=== PATIENT | female | born 2000 | race Caucasian/White ===

== ENCOUNTER 2019-04-07 04:27 | Emergency (ER) | payer SELFPAY ==
[~2019-04-07] VITALS: Ht 160 cm; Wt 52.2 kg
[2019-04-07 04:27] VITALS: BP_SYST 113
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
--- NOTE | 2019-04-07 04:53 | NUR ---
Dr. Manning at bedside.
[2019-04-07 05:00] VITALS: BP_SYST 126
--- NOTE | 2019-04-07 05:00 | NUR ---
chief program officer given written and verbal discharge instructions and verbalizes understanding. ER MD discussed with patient the results and treatment provided. ID arm band removed. No Rx given. Patient educated on pain management and to follow up with PMD. Pain Scale 1/10. Opportunity for questions provided and answered. Medication side effect fact sheet provided. Pt leaves in stable condition in c/o radiation officer to [facility] via squad car.
== END 2019-04-07 05:00 ==
LOC: SED 04:27
DX: H57.12 Ocular pain, left eye (principal); V89.2XXA Person injured in unspecified motor-vehicle accident, traffic, initial encounter; Y93.89 Activity, other specified; Y92.89 Other specified places as the place of occurrence of the external cause; Y99.8 Other external cause status
CPT/HCPCS: 99283